=== PATIENT | male | born 1975 | race Caucasian/White ===

== ENCOUNTER 2016-11-26 11:52 | Emergency (ER) | payer OTHER ==
[2016-11-26 12:14] VITALS: BP 134/77; PULSE 66; RESP 18; TEMP 98.2
[2016-11-26] MEDS ORDERED: PROPARACAINE 0.5% OPHTH DROPS 15 ML BTL LEFT EYE STA (12:16)
[2016-11-26] MEDS ORDERED: ERYTHROMYCIN 5 MG/GM OPHTH OINT 3.5 GM TUBE RIGHT EYE STA (12:29)
--- NOTE | 2016-11-26 12:31 | ED ---
General Adult HPI - General Chief complaint: ENT Stated complaint: FB in eye Time Seen by Provider: 11/26/16 12:14 Source: patient, RN notes reviewed Mode of arrival: ambulatory Limitations: no limitations - History of Present Illness Initial comments: This is a 41-year-old male presents with foreign body to the right eye. Patient states Saturday night he was grinding a piece of metal and thinks there is a piece in his eye. Patient states he was not noticing much pain until 5:00 this morning when he was unable to open his eye. Patient states that he does not wear contacts. Patient states he is up-to-date on his tetanus shot. Patient denies any recent fever, chills, shortness breath, chest pain, abdominal pain, nausea/vomiting/diarrhea, back pain, numbness, tingling, hematuria, headache, or visual changes, or any other complaints. - Related Data Previous Rx's Medication Instructions Recorded HYDROcodone/APAP 7.5-325MG [[place] 1 tab PO Q6HR PRN #28 tab 09/02/15 7.5-325] Erythromycin Ophth Oint [Romycin 1 applic RIGHT EYE QID 5 Days 11/26/16 Ophth Oint] traMADol HCL [Ultram] 50 mg PO Q6HR #12 tab 11/26/16 Allergies Allergy/AdvReac Type Severity Reaction Status Date / Time No Known Allergies Allergy Verified 08/24/15 15:39 Review of Systems ROS Statement: Those systems with pertinent positive or pertinent negative responses have been documented in the HPI. ROS Other: All systems not noted in ROS Statement are negative. Past Medical History Past Medical History: GERD/Reflux Additional Past Medical History / Comment(s): HIATAL HERNIA History of Any Multi-Drug Resistant Organisms: None Reported Past Surgical History: Orthopedic Surgery Additional Past Surgical History / Comment(s): RT Rotator cuff surg. EGD Past Anesthesia/Blood Transfusion Reactions: No Reported Reaction Past Psychological History: No Psychological Hx Reported Smoking Status: Former smoker Past Alcohol Use History: None Reported Additional Past Alcohol Use History / Comment(s): (SMOKED 1990-01/2015) Past Drug Use History: None Reported - Past Family History Mother Family Medical History: No Reported History General Exam - General Exam Comments Initial Comments: General: The patient is awake and alert, in no distress, and does not appear acutely ill. Eye: There is a small foreign body noted to the 4 o'clock position over the cornea. Pupils are equal, round and reactive to light, extra-ocular movements are intact. No nystagmus. There is normal conjunctiva bilaterally, but the right eye is mildly erythematous. No signs of icterus. Visual acuity: 20/20 both eyes, individually and together. Ears: TMs pink and pearly with intact cone of light bilaterally. Normal external ear canals Nose: Nasal turbinates pink and moist Mouth and throat: There are moist mucous membranes and no oral lesions. Neck: The neck is supple, there is no tenderness or JVD. Cardiovascular: There is a regular rate and rhythm. No murmur, rub or gallop is appreciated. Respiratory: Lungs are clear to auscultation, respirations are non-labored, breath sounds are equal. No wheezes, stridor, rales, or rhonchi. Musculoskeletal: Normal ROM, no tenderness. Strength 5/5. Sensation intact. Radial pulses equal bilaterally 2+. Neurological: A&O x 3. CN II-XII intact, There are no obvious motor or sensory deficits. Coordination appears grossly intact. Speech is normal. Skin: Skin is warm and dry and no rashes or lesions are noted. Psychiatric: Cooperative, appropriate mood & affect, normal judgment. Limitations: no limitations Course Vital Signs 11/26/16 12:12 Temperature 98.2 F Pulse Rate 66 Respiratory 18 Rate Blood Pressure 134/77 O2 Sat by Pulse 99 Oximetry Procedures - Procedures Initial comment: A slit lamp exam was performed and small foreign body is noted to the right eye 4 o'clock position. Proparacaine was used to anesthetize the eye. Patient's symptoms were relieved after proparacaine drops. Use cotton tip to attempt to remove foreign body. No foreign body was removed with cotton tip. An Neto brush was used in an attempt to remove the foreign body. A small piece of the foreign body was removed but a portion remains. Inverted lids to check for foreign body and no foreign body was noted. Patient tolerated procedure well. Medical Decision Making - Medical Decision Making This is a 41-year-old male presents with foreign body to right eye. Patient states he is up-to-date on his tetanus shot. On physical exam there is a small foreign body noted to the 4 o'clock position over the cornea. Pupils are equal , round and reactive to light, extra-ocular movements are intact. No nystagmus. There is normal conjunctiva bilaterally, but the right eye is mildly erythematous. No signs of icterus. Visual acuity: 20/20 both eyes, individually and together. A slit lamp exam was performed and small foreign body is noted to the right eye 4 o'clock position. Proparacaine was used to anesthetize the eye. Patient's symptoms were relieved after proparacaine drops. Use cotton tip to attempt to remove foreign body. No foreign body was removed with cotton tip. An Neto brush was used in an attempt to remove the foreign body. A small piece of the foreign body was removed but a portion remains. Inverted lids to check for foreign body and no foreign body was noted. Patient tolerated procedure well. I discussed the patient will be put on a course of erythromycin eye ointment. I discussed the patient should follow-up with the contracts advisor today or tomorrow. I discussed Tylenol and Motrin for pain and tramadol for any breakthrough pain. I discussed return parameters. Discussed that patient should follow up with PCP in one to 2 days or return to the [facility] for any worsening symptoms or for any further concerns. Patient was receptive to this plan and patient will be discharged home. Disposition Clinical Impression: Foreign body in eyeball, right, Corneal abrasion Disposition: HOME SELF-CARE Condition: Good Instructions: Eye Foreign Body (ED), Corneal Abrasion (ED) Prescriptions: Erythromycin Ophth Oint [Romycin Ophth Oint] 1 applic RIGHT EYE QID 5 Days Referrals: None,Stated [Primary Care Provider] - 1-2 days Glenroy Beatty MD [STAFF PHYSICIAN] - 1-2 days Shelley Borges MD [STAFF PHYSICIAN] - 1-2 days Time of Disposition: 12:45
== END 2016-11-26 12:58 | disposition home or self-care (01) ==
LOC: EC 11:52
DX: T15.01XA Foreign body in cornea, right eye, initial encounter (principal); Z87.891 Personal history of nicotine dependence
CPT/HCPCS: 99283

== ENCOUNTER 2016-12-16 20:01 | Emergency (ER) | payer OTHER ==
[2016-12-16 20:32] VITALS: BP 144/91; PULSE 84; RESP 20; TEMP 98.2
--- NOTE | 2016-12-16 20:50 | ED ---
ENT HPI - General Chief complaint: Dental/Oral Stated complaint: dental pain Time Seen by Provider: 12/16/16 20:34 Source: patient Mode of arrival: ambulatory Limitations: no limitations - History of Present Illness Initial comments: Patient is a 41-year-old white male presenting to the emergency department with complaints of dental pain to tooth #27. Patient states that he was eating food 2 nights ago when he cracked his tooth. Patient is complaining of progressive dental pain despite taking NSAIDs and Orajel prior to arriving. Patient is also complaining of jaw pain on the right side radiating up towards his ear. Patient is complaining of swelling to the lower part of his face and states he' s experienced sweats this morning. Patient currently rates pain 8 out of 10, exacerbated with hot and cold foods and chewing. Patient denies antibiotic use last 30 days. Patient states he is planning on calling the dentist tomorrow. MD complaint: tooth pain Onset/Timin -: days(s) Location: tooth # (27) Severity: moderate Severity scale (1-10): 8 Quality: sharp Consistency: constant Improves with: none Worsens with: none Context- Dental: history of dental caries, poor dental care Associated Symptoms: gum swelling, toothache - Related Data Home Medications Medication Instructions Recorded Confirmed Ibuprofen [Advil] 400 mg PO DAILY PRN 12/16/16 12/16/16 Previous Rx's Medication Instructions Recorded HYDROcodone/APAP 5-325MG [[place] 1 tab PO Q4HR PRN #20 tab 12/16/16 5-325] Ibuprofen [Motrin] 800 mg PO Q8HR PRN #20 tab 12/16/16 Penicillin V Potassium [Pen Vee K] 500 mg PO QID #28 tab 12/16/16 Allergies Allergy/AdvReac Type Severity Reaction Status Date / Time No Known Allergies Allergy Verified 12/16/16 20:43 Review of Systems ROS Statement: Those systems with pertinent positive or pertinent negative responses have been documented in the HPI. ROS Other: All systems not noted in ROS Statement are negative. Past Medical History Past Medical History: GERD/Reflux Additional Past Medical History / Comment(s): HIATAL HERNIA History of Any Multi-Drug Resistant Organisms: None Reported Past Surgical History: Orthopedic Surgery Additional Past Surgical History / Comment(s): RT Rotator cuff surg. EGD Past Anesthesia/Blood Transfusion Reactions: No Reported Reaction Past Psychological History: No Psychological Hx Reported Smoking Status: Former smoker Past Alcohol Use History: None Reported Additional Past Alcohol Use History / Comment(s): (SMOKED 1990-01/2015) Past Drug Use History: None Reported - Past Family History Mother Family Medical History: No Reported History General Exam Limitations: no limitations General appearance: alert, in no apparent distress Head exam: Present: atraumatic, normocephalic, normal inspection Eye exam: Present: normal appearance Expanded Ear exam: Present: normal external inspection Mouth exam: Present: normal external inspection, tongue normal. Absent: drooling, trismus Teeth exam: Present: fractured tooth # (27), dental tenderness # (27), gingival enlargement Throat exam: normal inspection. negative: tonsillar erythema, tonsillomegaly, tonsillar exudate, R peritonsillar mass, L peritonsillar mass Neck exam: Present: normal inspection, full ROM. Absent: tenderness, lymphadenopathy Respiratory exam: Present: normal lung sounds bilaterally. Absent: respiratory distress, wheezes, rales, rhonchi, stridor Cardiovascular Exam: Present: regular rate, normal rhythm, normal heart sounds. Absent: systolic murmur, diastolic murmur, rubs, gallop, clicks GI/Abdominal exam: Present: soft, normal bowel sounds. Absent: tenderness Extremities exam: Present: normal inspection, full ROM, normal capillary refill. Absent: tenderness, pedal edema, joint swelling, calf tenderness Neurological exam: Present: alert, oriented X3, normal gait, other (No focal deficits noted) Psychiatric exam: Present: normal affect, normal mood Skin exam: Present: warm, dry, intact, normal color Course Vital Signs 12/16/16 20:30 Temperature 98.2 F Pulse Rate 84 Respiratory 20 Rate Blood Pressure 144/91 O2 Sat by Pulse 99 Oximetry Medical Decision Making - Medical Decision Making Fractured tooth #27. Toothache with gingival swelling without abscess. Patient started on penicillin and provided prescription for pain medications. Patient instructed to apply warm compresses for relief. Patient instructed to follow-up with dentist next 24-48 hours for further treatment. Discharge instructions and return parameters reviewed. Patient agrees with treatment plan. Disposition Clinical Impression: Fracture of tooth, Toothache Disposition: HOME SELF-CARE Condition: Good Instructions: Toothache (ED) Additional Instructions: Please antibiotic as prescribed. Continue Motrin 800 mg 3 times a day as needed for pain. Continue [place] 5 for [id number] pain every 4 hours as necessary. May apply warm compresses for relief. Follow-up with dentist in next 24-48 hours for further treatment plan. Please return to the emergency department if symptoms do not improve or get worse. Prescriptions: HYDROcodone/APAP 5-325MG [[place] 5-325] 1 tab PO Q4HR PRN #20 tab PRN Reason: Pain Ibuprofen [Motrin] 800 mg PO Q8HR PRN #20 tab PRN Reason: Pain Penicillin V Potassium [Pen Vee K] 500 mg PO QID #28 tab Referrals: None,Stated [Primary Care Provider] - 1-2 days Time of Disposition: 20:49
== END 2016-12-16 21:01 | disposition home or self-care (01) ==
LOC: EC 20:01
DX: S02.5XXA Fracture of tooth (traumatic), initial encounter for closed fracture (principal); H92.21 Otorrhagia, right ear; Z87.891 Personal history of nicotine dependence; X58.XXXA Exposure to other specified factors, initial encounter
CPT/HCPCS: 99282

== ENCOUNTER 2018-12-13 05:06 | Emergency (ER) | payer OTHER ==
[2018-12-13 05:20] VITALS: TEMP 97.8
--- NOTE | 2018-12-13 06:24 | XR ---
EXAM: XR Right Ribs, 2 Views CLINICAL HISTORY: ITS.REASON XR Reason: Pain TECHNIQUE: Frontal and oblique views of the right ribs. COMPARISON: No relevant prior studies available. FINDINGS: Lungs: No consolidation or mass. Pleural space: No effusion. Bones/joints: No acute fracture. No dislocation. IMPRESSION: No obvious fractures.
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
[2018-12-13] MEDS ORDERED: KETOROLAC 30 MG/ML 1 ML VIAL IM STA (06:44)
[2018-12-13 06:58] VITALS: BP 138/98; PULSE 82; RESP 20
== END 2018-12-13 06:58 | disposition home or self-care (01) ==
LOC: EC 05:06
DX: R07.81 Pleurodynia (principal); F17.200 Nicotine dependence, unspecified, uncomplicated; Z87.828 Personal history of other (healed) physical injury and trauma
CPT/HCPCS: 71100; 99283; 96372; J1885